=== PATIENT | female | born 1945 | race Caucasian/White ===

== ENCOUNTER 2019-01-01 18:09 | Emergency (ER) | payer MEDICARE ==
[~2019-01-01] VITALS: Ht 160 cm; Wt 228.0 kg
[~2019-01-01 18:09] MED LIST: [UNRECOGNIZED DRUG - OTHER]
[2019-01-01] MEDS ORDERED: LIPITOR20 M1 PO (18:24)
[2019-01-01] MEDS ORDERED: SPIRIVA HANDIH18 MCG (18:25)
[2019-01-01] MEDS ORDERED: LEVOTHYROXIN50 MCG PO (18:25)
[2019-01-01] MEDS ORDERED: ADVAIR DISK1 INH (18:26)
[2019-01-01] MEDS ORDERED: AMOXICILLIN500 MG PO (18:55)
[2019-01-01 19:10] VITALS: BP 178/87
== END 2019-01-01 19:10 | disposition home or self-care (01) ==
LOC: ED 18:09
PROC: 0HQDXZZ Repair Right Lower Arm Skin, External Approach (ICD-10-PCS; principal; 2019-01-01)
DX: S51.811A Laceration without foreign body of right forearm, initial encounter (principal); W45.8XXA Other foreign body or object entering through skin, initial encounter; W22.09XA Striking against other stationary object, initial encounter; Y93.01 Activity, walking, marching and hiking; Y92.512 Supermarket, store or market as the place of occurrence of the external cause

== ENCOUNTER 2022-08-12 18:24 | Emergency (ER) | payer MEDICARE ==
[~2022-08-12] VITALS: Ht 160 cm; Wt 97.0 kg
[~2022-08-12 18:24] MED LIST changes: +ADVAIR DISK1 INH; +AMOXICILLIN500 MG PO; +LEVOTHYROXIN50 MCG PO; +LIPITOR20 M1 PO; +SPIRIVA HANDIH18 MCG
[2022-08-12] MEDS ORDERED: AMOXICILLIN500 MG PO (21:47)
[2022-08-12 22:30] VITALS: BP 179/86
== END 2022-08-12 22:30 | disposition home or self-care (01) ==
LOC: ED 18:24
PROC: 0HQKXZZ Repair Right Lower Leg Skin, External Approach (ICD-10-PCS; principal; 2022-08-12)
DX: S81.011A Laceration without foreign body, right knee, initial encounter (principal); I10 Essential (primary) hypertension; J44.9 Chronic obstructive pulmonary disease, unspecified; W10.9XXA Fall (on) (from) unspecified stairs and steps, initial encounter; Y92.009 Unspecified place in unspecified non-institutional (private) residence as the place of occurrence of the external cause

== ENCOUNTER 2022-08-14 11:10 | Emergency (ER) | payer MEDICARE ==
[~2022-08-14] VITALS: Ht 160 cm; Wt 100.0 kg
[2022-08-14 14:41] VITALS: BP 211/95
[2022-08-14 14:47] VITALS: BP 175/84
[2022-08-14 15:01] VITALS: BP 184/85
[2022-08-14 15:17] VITALS: BP 148/122
[2022-08-14 15:29] VITALS: BP 148/122
== END 2022-08-14 15:43 | disposition home or self-care (01) ==
LOC: ED 11:10
DX: S81.011D Laceration without foreign body, right knee, subsequent encounter (principal); I10 Essential (primary) hypertension; J44.9 Chronic obstructive pulmonary disease, unspecified; X58.XXXD Exposure to other specified factors, subsequent encounter

== ENCOUNTER 2024-12-23 10:02 | Emergency (ER) | payer MEDICARE ==
[~2024-12-23] VITALS: Ht 160 cm; Wt 81.6 kg
[~2024-12-23 10:02] MED LIST changes: +AMLODIPINE BESYL5 MG PO; +COZAAR50 MG PO; +FLUTICASONE PRO PO; +GABAPENTIN300 M2 PO; +LOSARTAN POTASS50 MG PO; +PREDNISONE20 MG PO; +TAMIFLU30 MG PO; +ZITHROMAX Z-PA250 MG PO
[2024-12-23] MEDS ORDERED: LIDOcaine HCl 1% (Local Anesth.) 20 ML VIAL STI STA (10:21)
[2024-12-23] MEDS ORDERED: POVIDONE IODINE 0.5 OZ/BTL TOP ONE (10:25)
[2024-12-23] MEDS ORDERED: Diph, Acellular Pertussis, Tet 0.5 ML/VIAL (Tdap) SDV IM ONE (10:25)
[2024-12-23] MEDS ORDERED: KEFLEX500 MG PO (13:33)
[2024-12-23 13:47] VITALS: BP 134/50
== END 2024-12-23 14:02 | disposition home or self-care (01) ==
LOC: ED 10:02
PROC: 0HQLXZZ Repair Left Lower Leg Skin, External Approach (ICD-10-PCS; principal; 2024-12-23)
DX: S81.812A Laceration without foreign body, left lower leg, initial encounter (principal); I10 Essential (primary) hypertension; J44.9 Chronic obstructive pulmonary disease, unspecified; W22.8XXA Striking against or struck by other objects, initial encounter
CPT/HCPCS: 90715